=== PATIENT | male | born 1955 | race Caucasian/White ===

== ENCOUNTER → 2018-08-12 | Outpatient (CLI) | payer BC, OTHER ==
[~2018-08-12] MED LIST: ASPIRIN81 M2 PO; ATORVASTATIN CA40 MG PO; COREG3.125 MG PO; COZAAR 50 MG TA50 MG PO; EFFIENT10 MG PO; MEDROLDOSEPACK PO; PLAVIX 75 MG TA75 MG PO; PROTONIX40 M1 PO; VALACYCLOVIR1000 MG PO; ZOLOFT25 MG PO
== END ==
LOC: RAD 11:01
DX: J98.4 Other disorders of lung (principal); M25.78 Osteophyte, vertebrae

== ENCOUNTER 2018-11-03 10:45 | Emergency (ER) | payer BC, OTHER ==
[~2018-11-03] VITALS: Ht 182.9 cm; Wt 126.1 kg
--- NOTE | ~2018-11-03 | EKG ---
[address] [address] ELECTROCARDIOGRAM REPORT Name: LEONARDO IRIZARRY Room #: PRE M.R.#: [id number] ������������������ Admission: ������������������ Attend Phys: Discharge: ������������������ Date of : 57 Report #: [id number] ����������������������������������������������������������������� [id number] THIS REPORT FOR: //name// [facility] ED Test Date: 2018-11-03 Test Time: 11:01:35 Pat Name: LENOARDO IRIZARRY Department: Room: Gender: M [employer]: : 1955 Requested By: Ashely Oliveira Order Number: [id number] MD: Measurements Intervals [place] Rate: 58 P: 0 VA: 191 QRS: 1 QRSD: 150 T: 69 QT: 455 QTc: 447 Interpretive Statements Sinus rhythm Right bundle branch block Anterior infarct, old Compared to ECG 05/08/2018 11:14:56 No significant changes [email or web address] ��������������������������������������������� ���������������������������������������� By: ��������������������������������������������� 00 110 Lucretia Boykin MD /EPI
[2018-11-03 11:17] LABS: ABSOLUTE NEUTROPHILS 3.8 thou/uL (1.4-8.2); BASOPHILS 1.2 % (0.0-2.0); HEMATOCRIT 42.2 % (42.0-52.0); HEMOGLOBIN 14.2 gm/dL (14.0-18.0); LYMPHOCYTES 26.6 % (24.0-44.0); MCH 31.2 pg (26.0-34.0); MCHC 33.5 g/dL (28.0-37.0); MONOCYTES 8.6 % (1.0-8.0); PLATELET COUNT 256 thou/uL (150-400); POLYS 57.6 % (36.0-66.0); RBC 4.54 mil/uL (4.50-6.00); RDW 14.2 % (10.5-14.5); WBC 6.7 thou/uL (4.0-11.0)
[2018-11-03 11:24] LABS: ANION GAP 8 mmol/L (7-16); BUN 28 mg/dL (7-18); CHLORIDE 103 mmol/L (98-107); CO2 27 mmol/L (21-32); GLUCOSE 113 mg/dL (74-106); POTASSIUM 4.2 mmol/L (3.5-5.1); SODIUM 138 mmol/L (136-145)
[2018-11-03 11:33] LABS: TROPONIN-I <0.06 ng/mL (<0.06)
[2018-11-03 11:45] LABS: APTT 29.2 Seconds (24.5-32.8); PROTIME 10.3 Seconds (9.3-11.4)
[2018-11-03 12:45] VITALS: BP 121/73
== END 2018-11-03 12:46 | disposition short-term general hospital (02) ==
LOC: ER 10:45
PROVIDERS: Student in an Organized Health Care Education/Training Program
DX: S06.5X0A Traumatic subdural hemorrhage without loss of consciousness, initial encounter (principal); Z87.891 Personal history of nicotine dependence; W18.39XA Other fall on same level, initial encounter; Y92.89 Other specified places as the place of occurrence of the external cause; Y93.89 Activity, other specified; Y99.8 Other external cause status

== ENCOUNTER → 2018-11-03 | Outpatient (CLI) | payer BC, OTHER | LOC: CAT 09:56 | DX: S06.5X9D Traumatic subdural hemorrhage with loss of consciousness of unspecified duration, subsequent encounter (principal); G44.309 Post-traumatic headache, unspecified, not intractable; W19.XXXD Unspecified fall, subsequent encounter ==